=== PATIENT | male | born 1970 | race Caucasian/White ===

== ENCOUNTER 2018-09-03 00:13 | Emergency (ER) | payer SELFPAY ==
[~2018-09-03] VITALS: Ht 170.2 cm; Wt 75.5 kg
[2018-09-03] MEDS ORDERED: METF-960 PO (00:22)
[2018-09-03 00:29] LABS: GLUCOSE,POINT OF CARE 193 MG/DL (70-110)
[2018-09-03] MEDS ORDERED: PERTUSS(ACELL),DIPH,TET VAC/PF 0.5 ML VIAL IM ONE (01:15)
[2018-09-03 02:20] VITALS: BP 151/111
== END 2018-09-03 02:53 | disposition home or self-care (01) ==
LOC: EMS 00:15
DX: S01.01XA Laceration without foreign body of scalp, initial encounter (principal); F17.210 Nicotine dependence, cigarettes, uncomplicated; E11.9 Type 2 diabetes mellitus without complications; F15.90 Other stimulant use, unspecified, uncomplicated; Z79.84 Long term (current) use of oral hypoglycemic drugs; V13.4XXA Pedal cycle driver injured in collision with car, pick-up truck or van in traffic accident, initial encounter; Y93.55 Activity, bike riding; Y92.410 Unspecified street and highway as the place of occurrence of the external cause; Y99.8 Other external cause status
CPT/HCPCS: 12001; 70450; 90471; 90715

== ENCOUNTER 2019-03-02 15:40 | Emergency (ER) | payer SELFPAY ==
[~2019-03-02] VITALS: Ht 170.2 cm; Wt 81.8 kg
[~2019-03-02 15:40] MED LIST: METF-960 PO
[2019-03-02] MEDS ORDERED: LISI-662 PO (16:10)
[2019-03-02 16:14] LABS: GLUCOSE,POINT OF CARE 203 MG/DL (70-110)
[2019-03-02 17:40] VITALS: BP 135/90
== END 2019-03-02 17:50 | disposition home or self-care (01) ==
LOC: EMS 15:41
DX: Z02.89 Encounter for other administrative examinations (principal); I10 Essential (primary) hypertension; E11.9 Type 2 diabetes mellitus without complications; Z79.84 Long term (current) use of oral hypoglycemic drugs